=== PATIENT | male | born 1950 | race Caucasian/White ===

== ENCOUNTER → 2017-03-30 | Outpatient (CLI) | payer OTHER, MEDICAID ==
[2015-06-03 08:17] VITALS: BP 131/84
--- NOTE | 2017-03-30 10:24 | MRI ---
HISTORY: Back pain, radiculopathy Study: MRI lumbar spine without contrast Comparison: None Technique: Multiplanar multi-sequence MRI of the lumbar spine was obtained. Sagittal T1, sagittal T2 , and stir weighted images, axial T1, and axial T2 images were obtained. Findings: The lumbar spine demonstrates normal alignment with the expected signal characteristics of the bone m arrow. The conus of the cord terminates normally. T12 -- L1: No evidence for compressive disc disease. The neural foramina are patent. The joints are n ormal. L1 -- L2: No evidence for compressive disc disease. The neural foramina are patent. The joints are no rmal. L2 -- L3: No evidence for compressive disc disease. The neural foramina are patent. Bilateral facet a rthropathy is present L3 -- L4: No evidence for compressive disc disease. The neural foramina are patent. Bilateral facet a rthropathy is present. L4 -- L5: Circumferential disk bulging effaces the thecal sac and contributes along with pedicular sh ortening, ligamentous hypertrophy and mild facet arthropathy to a relative spinal stenosis with signi ficant lateral recess and foraminal narrowing bilaterally. L5 -- S1: No evidence for compressive disc disease. Pedicular shortening contributes with mild facet arthropathy to lateral recess and foraminal narrowing bilaterally. IMPRESSION: As above Reported By:
== END | disposition home or self-care (01) | DRG 552 ==
LOC: RAD 08:31
PROVIDERS: ATTEND Orthopaedic Surgery Orthopaedic Surgery of the Spine
DX: M54.17 Radiculopathy, lumbosacral region (principal); M51.26 Other intervertebral disc displacement, lumbar region; M12.88 Other specific arthropathies, not elsewhere classified, other specified site; M46.06 Spinal enthesopathy, lumbar region
CPT/HCPCS: 72148